=== PATIENT | female | born 2000 | race Caucasian/White ===

== ENCOUNTER 2023-12-17 14:51 | Emergency (ER) | payer BC, SELFPAY ==
--- NOTE | ~2023-12-17 | US_ITS ---
EXAMINATION: US pelvic complete w TV DATE: 12/17/2023 20:43 INDICATION: Right ovarian cysts TECHNIQUE: Multiple transabdominal and endovaginal sonographic images of the pelvis were obtained. COMPARISON: None. FINDINGS: The uterus measures 7.3 x 4.0 x 5.8 cm. The endometrial complex measures 7 mm in thickness. The righ t ovary measures 4.2 x 4.3 x 3.4 cm and contains a 3.9 cm anechoic left ovarian cyst. The left ovary measures 2.2 x 2.0 x 2.0 cm. There are couple subcentimeter anechoic follicles in the left ovary. Vas cular flow with arterial waveforms identified in both ovaries on color Doppler. There is a minimal am ount of likely physiologic anechoic free fluid in the pelvis. IMPRESSION: 1. Simple appearing 3.9 standard left ovarian cyst. Otherwise normal pelvic ultrasound with vascular flow with arterial waveforms identified in both ovaries on color Doppler.. Reviewed, dictated and finalized at location A. IMPRESSION: 1. Simple appearing 3.9 standard left ovarian cyst. Otherwise normal pelvic ult rasound with vascular flow with arterial waveforms identified in both ovaries o n color Doppler..
--- NOTE | ~2023-12-17 | CT_ITS ---
EXAMINATION: CT abdomen pelvis w con DATE: 12/17/2023 19:21 INDICATION: Constipation. C. Difficile colitis. TECHNIQUE: Computed tomography (CT) of the abdomen and pelvis was performed with 100 mL Omnipaque-350 intravenous contrast. Automated exposure control and iterative reconstruction technique were employe d. The dose-length product was 209.57 mGy-cm. COMPARISON: None FINDINGS: Lung bases are clear. Heart size is normal. No pericardial or pleural effusion. Liver, gallbladder, s pleen, pancreas, bilateral adrenal glands and kidneys are normal. Large amount of stool scattered thr oughout the colon consistent with provided history of constipation. Bowels are otherwise unremarkable with no obstruction. The appendix is not visualized. No pericecal inflammatory change to suggest acu te appendicitis.. Bladder is normal. 4.5 cm right adnexal cyst. No free intraperitoneal gas or fluid . No pathologically enlarged abdominal or pelvic lymphadenopathy. Mild thoracolumbar dextrocurvature. IMPRESSION: 1. Large amount of stool scattered throughout the colon consistent with provided history of constipat ion. 2. 4.5 cm right adnexal cyst/follicle. Reviewed, dictated and finalized at location A. IMPRESSION: 1. Large amount of stool scattered throughout the colon consistent with provide d history of constipation. 2. 4.5 cm right adnexal cyst/follicle.
--- NOTE | ~2023-12-17 | XR_ITS ---
XR abdomen/kub 1V Ordering provider: Jaime Gonzales History: . . Comparison: None. FINDINGS: BOWEL: Fecal material seen in the rectal sigmoid left area. Nonobstructive bowel gas pattern. ORGANOMEGALY: None. SIGNIFICANT PATHOLOGIC CALCIFICATIONS: None. OTHER: Linear Ossification seen above the right 11th rib. No free air is seen under the diaphragm. IMPRESSION: NO ACUTE ABDOMINAL FINDINGS. Reviewed, dictated and finalized at location A.
[2023-12-17 15:01] VITALS: BP 121/92; PULSE 103; RESP 16; TEMP 36.8; O2SAT 99
--- NOTE | 2023-12-17 15:03 | ED.GENADULT ---
HPI - General Adult General Chief complaint: Nausea/Vomiting/Diarrhea <Jaime Gonzales APRN - Last Filed: 12/17/23 15:04> Stated complaint: cdiff <Jaime Gonzales APRN - Last Filed: 12/17/23 15:04> Time Seen by Provider: 12/17/23 17:01 <Jaime Gonzales APRN - Last Filed: 12/17/23 15:04> 23-year-old female presents to the emergency room for evaluation of constipation. Patient states 10 days ago she was diagnosed with C diff by a GI physician in [facility]. Patient started on vancomycin. States that she has not had a bowel movement 3 days. Endorses flatulence. Denies fevers. Denies nausea or vomiting. States attempted to take multiple [id number] anti constipation medications including MiraLax with no improvement of her symptoms. <Jaime Gonzales APRN - Last Filed: 12/17/23 15:04> History of Present Illness HPI narrative: 23-year-old female with no past medical history presents emergency department for constipation for 4 days. Patient states 8 days ago she was diagnosed with C diff by a GI physician in [place], [place]. States her girlfriend recently had C diff and the patient began having copious amounts of diarrhea. She was started on p.o. vancomycin about a week ago which she has been taking as directed. States 4 days ago she began to feel constipated has not had a bowel movement which is abnormal for her. She reports associated diffuse abdominal cramping. She states she has been passing gas. Denies prior abdominal surgeries, fever, nausea or vomiting, focal abdominal pain, dysuria or hematuria. States she tried MiraLax at home without improvement. <Rahel Rivera PA-C - Last Filed: 12/18/23 02:00> Review of Systems Review of Systems: All systems reviewed & are unremarkable except as noted in HPI and below <Rahel Rivera PA-C - Last Filed: 12/18/23 02:00> Exam Narrative: GENERAL: Well-appearing, well-nourished, and in no acute distress. HEAD: Normocephalic, atraumatic. EYES: PERRLA and EOMI. ENT: Nares clear, no rhinorrhea or epistaxis. Mucous membranes moist. NECK: Supple. CHEST: Clear to auscultation. No respiratory distress. HEART: Regular rate and rhythm. No murmur heard. Normal peripheral pulses. ABDOMEN: Soft, nontender, nondistended, normal active bowel sounds. No rebound, guarding or rigidity. No CVA tenderness EXTREMITIES: Normal range of motion. No edema. SKIN: Warm, dry, no rash. NEURO: No focal deficits. Alert and oriented x3 <Rahel Rivera PA-C - Last Filed: 12/18/23 02:00> Course Vital Signs Vital signs: Vital Signs Temperature 98.2 F 12/17/23 15:01 Pulse Rate 103 H 12/17/23 15:01 Respiratory Rate 16 12/17/23 15:01 Blood Pressure 121/92 H 12/17/23 15:01 Pulse Oximetry 99 12/17/23 15:01 Oxygen Delivery Room Air 12/17/23 15:01 Temperature 98.2 F 12/17/23 15:01 Pulse Rate 78 12/17/23 18:52 Respiratory Rate 14 12/17/23 18:52 Blood Pressure 111/78 12/17/23 18:52 Pulse Oximetry 100 12/17/23 18:52 Oxygen Delivery Room Air 12/17/23 15:01 <Jaime Gonzales APRN - Last Filed: 12/17/23 15:04> Vital Signs Temperature 98.2 F 12/17/23 15:01 Pulse Rate 103 H 12/17/23 15:01 Respiratory Rate 16 12/17/23 15:01 Blood Pressure 121/92 H 12/17/23 15:01 Pulse Oximetry 99 12/17/23 15:01 Oxygen Delivery Room Air 12/17/23 15:01 Temperature 98.2 F 12/17/23 15:01 Pulse Rate 78 12/17/23 18:52 Respiratory Rate 14 12/17/23 18:52 Blood Pressure 111/78 12/17/23 18:52 Pulse Oximetry 100 12/17/23 18:52 Oxygen Delivery Room Air 12/17/23 15:01 <MAGDY Louie Last Filed: 12/18/23 02:00> Medical Decision Making MDM Narrative Medical decision making narrative: 23-year-old female no past medical history was recently diagnosis C diff 8 days ago by a GI physician in [place], [place] presents to the emergency department for constipation for 4 days.
[2023-12-17 15:32] LABS: BEDSIDEPREGUCG Negative
[2023-12-17 15:37] LABS: Add Urine Microscopic? YES; Appearance Urine Cloudy (Clear); Bacteria Urine 1+ /hpf; Bilirubin Urine Negative (Negative); Blood Urine 3+ (Negative); Color Urine Yellow (Yellow); Glucose Urine UA Negative (Negative); Ketones Urine Negative (Negative); Leukocyte Esterase Ur 1+ LEU/UL (Negative); Nitrate Urine Negative (Negative); Non Pathogenic Casts 0-2; Protein Urine Negative (Negative); Specific Grav Ur 1.026 (1.001-1.035); Squamous Epithelial Cell Urine Few /hpf (Few); pH Urine 6.5 (5.0-9.0)
[2023-12-17 18:38] LABS: Basophils Percent Auto 0.5 % (0.2-1.2); Eosinophils Absolute Auto 0.1 K/mm3 (0-0.3); Eosinophils Percent Auto 1.8 % (0-4.4); Hemoglobin 12.9 g/dL (12.0-15.0); Immature Granulocyte Absolute 0.03 K/mm3 (0.00-0.031); Immature Granulocyte Percent A 0.4 % (0-0.5); Lymphocytes Absolute Auto 1.32 K/mm3 (0.9-3.2); Mean Corpuscular HGB Conc 33.9 g/dl (32-36); Mean Corpuscular Volume 91.3 fl (80-100); Mean Platelet Volume 9.6 fl (7.4-10.4); Monocytes Absolute Auto 0.8 K/mm3 (0.1-0.6); Neutrophils Percent Auto 68.3 % (45.5-73.1); Platelet Count Result 194 k/mm3 (150-375); Red Blood Count 4.16 M/mm3 (4.2-5.4); Red Cell Distribution Width 12.2 % (11.5-14.5); White Blood Count 7.4 K/mm3 (4.5-10.0)
--- NOTE | 2023-12-17 18:38 | PC.NURSE ---
1800:Pt mother on facetime requesting to talk to the nurse. RN spoke with mother, mother requesting pt have CT Scan & lab work completed. 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 RN reviewed XRay, UA results with pt & mother. RN reinforced that pt has been examed by 2 medical providers. Pt states No I haven't just a PA. RN explained pt evaluated by COMPUTER ENGINEERING TECHNICIAN in triage, PA in exam room, both are medical providers. Both have assessed & came to same conclusion. Mother remains belligerent with RN. RN ask pt how she would like to proceed. Pt states I just want to go home . Rahel VALERO informed. Rahel spoke with pt approved of POC, mother insisted with Rahel that pt have CT & labs. pt moved to room 7.
[2023-12-17 18:47] LABS: Alanine Aminotransferase 15 U/L (6-35); Albumin Level 4.4 g/dL (3.5-5.1); Alkaline Phosphatase 48 U/L (38-126); Anion Gap 9 mmol/L (4-12); Aspartate Amino Transferase 27 U/L (14-36); Blood Urea Nitrogen 17 mg/dL (7-17); Carbon Dioxide 26 mmol/L (22-30); Chloride 103 mmol/L (98-107); Estimated CRCL calculation 102 ml/min; Estimated Glomerular Filt Rate > 60; Glucose 94 mg/dL (65-110); Lipase 61 U/L (23-300); Potassium 4.1 mmol/L (3.4-5.0); Sodium 138 mmol/L (137-145)
[2023-12-17 18:52] VITALS: BP 111/78; PULSE 78; RESP 14; O2SAT 100
== END 2023-12-17 21:14 | disposition home or self-care (01) ==
PROVIDERS: Nurse Practitioner Family; Emergency Provider Physician Assistant
DX: K59.00 Constipation, unspecified (principal); N83.292 Other ovarian cyst, left side; R82.998 Other abnormal findings in urine
CPT/HCPCS: 36415; 74018; 74177; 76830; 76856; 80053; 81001; 81025; 83690; 85025; 87086; 99284; Q9967